=== PATIENT | male | born 1955 | race Caucasian/White ===

== ENCOUNTER 2018-01-18 10:43 | Day surgery (SDC) | payer BC ==
[~2018-01-18] VITALS: Ht 185.4 cm; Wt 132.1 kg
[~2018-01-18 10:43] MED LIST: IBUP800; JARDIANCE25 MG; LOSARTAN POTAS100 MG; METF500C; NAPR500EC; PRIM250; ROPI2; SERT100; ZOLP10; Ziac 10-6.25 M1 EACH
== END 2018-01-18 13:11 | disposition home or self-care (01) ==
LOC: ORSCSDS 10:43
PROVIDERS: Internal Medicine Gastroenterology
PROC: 0DBM8ZX Excision of Descending Colon, Via Natural or Artificial Opening Endoscopic, Diagnostic (ICD-10-PCS; principal; 2018-01-18 12:00)
DX: Z12.11 Encounter for screening for malignant neoplasm of colon (principal); D12.4 Benign neoplasm of descending colon; K62.89 Other specified diseases of anus and rectum; K57.30 Diverticulosis of large intestine without perforation or abscess without bleeding; K64.8 Other hemorrhoids; I10 Essential (primary) hypertension; G47.33 Obstructive sleep apnea (adult) (pediatric); E11.9 Type 2 diabetes mellitus without complications; E66.9 Obesity, unspecified; Z87.891 Personal history of nicotine dependence; Z68.38 Body mass index [BMI] 38.0-38.9, adult; Z79.84 Long term (current) use of oral hypoglycemic drugs; Z79.899 Other long term (current) drug therapy
CPT/HCPCS: 82947; 88305; J7120

== ENCOUNTER 2019-05-29 14:03 | Emergency (ER) | payer BC ==
[~2019-05-29] VITALS: Ht 185.4 cm; Wt 136.1 kg
[2019-05-29] MEDS ORDERED: VENL150ER PO (14:29)
== END 2019-05-29 17:13 | disposition home or self-care (01) ==
LOC: ER 14:03
DX: S01.111A Laceration without foreign body of right eyelid and periocular area, initial encounter (principal); S01.412A Laceration without foreign body of left cheek and temporomandibular area, initial encounter; E11.9 Type 2 diabetes mellitus without complications; Z79.84 Long term (current) use of oral hypoglycemic drugs; F17.200 Nicotine dependence, unspecified, uncomplicated; Y04.8XXA Assault by other bodily force, initial encounter
CPT/HCPCS: 12011; 99283-25